=== PATIENT | female | born 2000 | race Two or more races ===

== ENCOUNTER 2022-08-26 16:27 | Emergency (ER) | payer MEDICAID ==
[~2022-08-26] VITALS: Ht 172.7 cm; Wt 55.0 kg
[2022-08-26 16:37] VITALS: BP 117/74; PULSE 72; RESP 16; O2SAT 100
[2022-08-26 17:29] LABS: CHLORIDE 112 mEq/L (98-107)
[2022-08-26 17:33] LABS: HCG SCREEN NEGATIVE
[2022-08-26 17:36] LABS: BASOPHILS % 0.3 % (0.0-2.0); EOSINOPHILS % 0.8 % (0.0-5.0); HEMATOCRIT. 35.1 % (36.0-48.0); HEMOGLOBIN. 11.8 g/dL (12.0-16.0); MEAN CORPUSCULAR HEMOGLOBIN 31.7 pg (28.0-32.0); MEAN CORPUSCULAR VOLUME 94.6 fL (81.0-99.0); MEAN PLATELET VOLUME 9.6 fl (7.4-10.4); NEUTROPHILS % 70.9 % (40.0-76.0); PLATELET 283 x1000/uL (130-400); RED BLOOD CELL COUNT 3.71 mill/uL (4.2-5.4); RED CELL DISTRIBUTION WIDTH 12.9 % (11.6-14.6)
[2022-08-26 22:20] VITALS: TEMP 97.3
[2022-08-26] MEDS ORDERED: ACETAMINOPHEN 325MG TABLET PO STA (22:20)
[2022-08-26] MEDS ORDERED: ONDANSETRON 4MG ODT PO ONE (22:30)
[2022-08-26] MEDS ORDERED: POTASSIUM CHLORIDE 20MEQ TABLET SR PO ONE (22:30)
[2022-08-27 01:09] LABS: CLARITY URINE CLOUDY (CLEAR); COLOR URINE DARK YELLOW (YELLOW); KETONES URINE 3+ (NEGATIVE); LEUKOCYTE ESTERASE URINE NEGATIVE (NEGATIVE); NITRITE URINE NEGATIVE (NEGATIVE); OCCULT BLOOD URINE 3+ (NEGATIVE); PROTEIN URINE 4+ (NEGATIVE); SPECIFIC GRAVITY URINE 1.034 (1.005-1.030)
== END 2022-08-27 00:05 | disposition left against medical advice (07) ==
LOC: ER 16:27
DX: R10.12 Left upper quadrant pain (principal); R11.2 Nausea with vomiting, unspecified
CPT/HCPCS: 99284; 80053; 81003; 84703; 83690; 85025; 84484; 36415; 93005; Q0162